=== PATIENT | male | born 1955 | race Two or more races ===

== ENCOUNTER 2025-02-01 21:38 | Inpatient (IN) | payer MEDICARE, OTHER ==
[~2025-02-01] VITALS: Ht 188 cm; Wt 88.5 kg
[2025-02-01 22:36] LABS: PLATELET COUNT (AUTO) 225 K/uL (150-450); RED BLOOD CELL COUNT(AUTO) 4.50 MIL/uL (4.5-6.0); RED CELL DISTRIBUTION WIDTH 15.0 % (11.5-15.0); WHITE BLOOD COUNT (AUTO) 10.2 K/uL (4.3-11.0)
[2025-02-01 22:44] LABS: CALCIUM, SERUM 8.7 mg/dL (8.5-10.1); CREATININE 0.9 mg/dL (0.6-1.3); SODIUM SERUM 142 mmol/L (136-145); UREA NITROGEN, BLOOD 28 mg/dL (7-18)
[2025-02-01 22:45] LABS: APPEARANCE,URINE CLEAR (CLEAR); BLOOD, URINE TRACE-INTA Ery/uL (NEGATIVE); LEUKOCYTE ESTERASE ,URINE NEGATIVE (NEGATIVE); NITRITE, URINE NEGATIVE (NEGATIVE); UGLUCOSE NEGATIVE (NEGATIVE)
[2025-02-01 22:49] LABS: ASPARTATE AMINOTRANSFERASE 15 U/L (15-37); TOTAL PROTEIN, SERUM 7.6 g/dL (6.4-8.2)
[2025-02-01 22:50] LABS: ALCOHOL, BLOOD < 3 mg/dL (0-10)
[2025-02-01 22:57] LABS: ADD URINE CULTURE NO; SQUAMOUS EPITHELIAL CELL,UR Few /HPF (None Seen)
[2025-02-01 22:59] LABS: AMPHETAMINE, URINE NEGATIVE (NEGATIVE); BARBITURATE, URINE NEGATIVE (NEGATIVE); BENZODIAZEPINE, URINE NEGATIVE (NEGATIVE); CANNABINOID, URINE NEGATIVE (NEGATIVE); COCCAINE, URINE NEGATIVE (NEGATIVE); OPIATE, URINE NEGATIVE (NEGATIVE)
[2025-02-02 00:30] VITALS: BP 127/88; TEMP 97.8; O2SAT 98
[2025-02-02] MEDS ORDERED: LORAZEPAM 0.5 MG TABLET PO PRN (00:30)
[2025-02-02] MEDS ORDERED: LORAZEPAM 1 MG TABLET PO PRN (00:30)
[2025-02-02] MEDS ORDERED: MAG HYDROX/AL HYDROX/SIMETH 30 ML UDC PO PRN (00:30)
[2025-02-02] MEDS ORDERED: ZOLPIDEM TARTRATE 5 MG TABLET PO PRN ×2 (00:30)
[2025-02-02] MEDS: BLOOD SUGAR DIAGNOSTIC 1 EACH STRIP IN ONE (00:59)
[2025-02-02] MEDS ORDERED: NICO2GUM9 BC (04:27)
[2025-02-02] MEDS ORDERED: DULO30CA2 PO (04:27)
[2025-02-02] MEDS: ACETAMINOPHEN 325 MG TABLET PO PRN (06:18)
[2025-02-02 08:00] VITALS: BP 142/63; TEMP 98.2; O2SAT 99
[2025-02-02 16:00] VITALS: BP 122/56; TEMP 98.1; O2SAT 94
[2025-02-02 20:36] VITALS: BP 155/65; TEMP 98.2; O2SAT 98
[2025-02-02] MEDS: DIVALPROEX SODIUM 250 MG TABLET.DR PO SCH (21:30)
[2025-02-02] MEDS: QUETIAPINE FUMARATE 25 MG TABLET PO SCH (21:30)
[2025-02-03 08:00] VITALS: BP 140/76; TEMP 98; O2SAT 98
[2025-02-03 08:10] LABS: ASPARTATE AMINOTRANSFERASE 16.0 U/L (15-37); CALCIUM, SERUM 8.8 mg/dL (8.5-10.1); CREATININE 0.9 mg/dL (0.6-1.3); SODIUM SERUM 145.0 mmol/L (136-145); TOTAL PROTEIN, SERUM 7.2 g/dL (6.4-8.2); UREA NITROGEN, BLOOD 23.0 mg/dL (7-18)
[2025-02-03] MEDS: DULOXETINE HCL 30 MG CAPSULE.DR PO SCH (08:48)
[2025-02-03 10:14] LABS: LDL 69 mg/dL (0-99)
[2025-02-03 16:00] VITALS: BP 111/63; TEMP 97.4; O2SAT 100
[2025-02-03 20:15] VITALS: BP 114/52; TEMP 97.5; O2SAT 98
[2025-02-04 08:00] VITALS: BP 129/57; TEMP 98; O2SAT 97
[2025-02-04 16:00] VITALS: BP_SYST 128; BP_SYST 129; BP_DIAS 61; BP_DIAS 69; TEMP 97.7; TEMP 98.7; O2SAT 97; O2SAT 98
[2025-02-04 21:37] VITALS: BP 137/60; TEMP 98.7; O2SAT 96
[2025-02-05 08:00] VITALS: BP 130/77; TEMP 97.7; O2SAT 98
[2025-02-05 16:00] VITALS: BP 118/62; TEMP 98.8; O2SAT 96
[2025-02-05 20:22] VITALS: BP 138/56; TEMP 98.3; O2SAT 97
[2025-02-06 08:00] VITALS: BP 132/69; TEMP 97.7; O2SAT 98
[2025-02-06 16:08] VITALS: BP 118/63; TEMP 97.7; O2SAT 96
[2025-02-06] MEDS: MAGNESIUM HYDROXIDE 30 ML UDC PO PRN (17:21)
[2025-02-06 20:39] VITALS: BP 136/74; TEMP 97.9; O2SAT 96
[2025-02-07 08:00] VITALS: BP 109/70; TEMP 98.7; O2SAT 97
[2025-02-07] MEDS: DIVALPROEX SODIUM 250 MG TABLET.DR PO SCH (09:00)
[2025-02-07 16:00] VITALS: BP 124/71; TEMP 98.8; O2SAT 97
[2025-02-07 19:49] VITALS: BP 130/59; TEMP 98.5; O2SAT 97
[2025-02-08 08:00] VITALS: BP 137/67; TEMP 97.8; O2SAT 98
[2025-02-08 16:00] VITALS: BP 125/63; TEMP 97.9; O2SAT 96
[2025-02-08 19:47] VITALS: BP 146/77; TEMP 97.8; O2SAT 96
[2025-02-08 20:14] VITALS: BP 135/70; TEMP 97.8; O2SAT 98
[2025-02-09 08:00] VITALS: BP 146/72; TEMP 98.1; O2SAT 98
[2025-02-09 16:00] VITALS: BP 126/61; TEMP 98.2; O2SAT 96
[2025-02-09 20:27] VITALS: BP 139/79; TEMP 98.3; O2SAT 96
[2025-02-10 08:00] VITALS: BP 134/66; TEMP 98.2; O2SAT 96
[2025-02-10 08:11] VITALS: TEMP 98.2
== END 2025-02-10 12:00 | disposition home or self-care (01) | DRG 885 ==
LOC: ER 21:40 → GPS 22:42
PROVIDERS: ADMIT Psychiatry & Neurology Psychiatry; ATTEND Nurse Practitioner Acute Care
DX: F33.3 Major depressive disorder, recurrent, severe with psychotic symptoms (principal); E78.5 Hyperlipidemia, unspecified; I10 Essential (primary) hypertension; I73.9 Peripheral vascular disease, unspecified; F41.9 Anxiety disorder, unspecified; Z88.0 Allergy status to penicillin; Z20.822 Contact with and (suspected) exposure to COVID-19; M19.90 Unspecified osteoarthritis, unspecified site; S11.81XD Laceration without foreign body of other specified part of neck, subsequent encounter; X78.8XXD Intentional self-harm by other sharp object, subsequent encounter; T14.91XD Suicide attempt, subsequent encounter; F10.20 Alcohol dependence, uncomplicated; Y90.0 Blood alcohol level of less than 20 mg/100 ml; F60.9 Personality disorder, unspecified; Z79.899 Other long term (current) drug therapy
CPT/HCPCS: 36415; 80048-TC; 80053-TC; 80061-TC; 80076-TC; 80164-TC; 81001; 82962-TC; 85025-TC; 87081-TC; 98960; G0480